=== PATIENT | female | born 1960 | race Caucasian/White ===

== ENCOUNTER 2018-11-16 17:25 | Observation (INO) | payer MEDICARE, BC, MEDICAID ==
--- NOTE | 2018-11-16 17:40 | EDM.PDOC ---
ED HPI GENERAL MEDICAL PROBLEM - General Chief Complaint: Cardiovascular Problem Stated Complaint: CHEST PAIN, SHORTNESS OF BREATH Time Seen by Provider: 11/16/18 17:33 Source of Information: Reports: Residential Records, Old Records, Provider History Limitations: Reports: Other (Chronic mental health) - History of Present Illness INITIAL COMMENTS - FREE TEXT/NARRATIVE: Arrived shortly before closing of the [facility] with EKG and 4 baby aspirin being administered. No evidence of infarct or ischemia on the EKG which was sent with her. Health status requires further workup not available in clinic. History of pneumonia PE and being septic in August. Was anticoagulated with an INR 2.5 1 week ago. Noted in [facility] "CODE STATUS is DO NOT RESUSCITATE" dated 2 L nasal cannula oxygen was administered last weekend and has been continuous since then. Despite this has been a pressure shortness of breath chest pain and feeling. According to the attendant with her she never rebounded to the same status after her significant illness in August. Onset: Gradual Onset Date: 11/13/18 Duration: Day(s):, Getting Worse Location: Reports: Chest Quality: Reports: Pressure Severity: Moderate Improves with: Reports: Other (Oxygen) Worsens with: Reports: Breathing, Movement Associated Symptoms: Reports: No Other Symptoms Treatments ORGANIZATION DEVELOPMENT CONSULTANT: Reports: Oxygen - Related Data Allergies Allergy/AdvReac Type Severity Reaction Status Date / Time cefoperazone sodium Allergy Cannot Verified 03/21/14 13:53 [From Cefobid] Remember codeine Allergy Edema Verified 03/21/14 13:53 hydromorphone [Hydromorphone] Allergy Respiratory Verified 03/21/14 13:53 Distress meperidine Allergy Respiratory Verified 03/21/14 13:53 Distress morphine Allergy Respiratory Verified 03/21/14 13:53 Distress Penicillins Allergy Cannot Verified 03/21/14 13:53 Remember Home Meds: Home Meds Acetaminophen 650 mg PO Q4H PRN 03/21/14 [History] Albuterol Sulfate [Albuterol Sulfate HFA] 2 puff IH Q4H PRN 03/21/14 [History] Fenofibrate Nanocrystallized [Fenofibrate] 145 mg PO DAILY 03/21/14 [History] Folic Acid 1 mg PO DAILY 03/21/14 [History] Ipratropium/Albuterol Sulfate [Duoneb 0.5 mg-3 mg/3 ml Soln] 1 unit NEB BID [History] Levothyroxine Sodium [Synthroid] 200 mcg PO ACBRK 03/21/14 [History] Lisinopril 2.5 mg PO DAILY 03/21/14 [History] Methotrexate Sodium [Methotrexate] 17.5 mg PO WE 03/21/14 [History] Omeprazole [Prilosec] 20 mg PO DAILY 03/21/14 [History] Sennosides/Docusate Sodium [Senna Plus Tablet] 2 each PO BID 03/21/14 [History] cloZAPine 400 mg PO QPM 03/21/14 [History] clonazePAM [Clonazepam] 3 mg PO BID 03/21/14 [History] Acetaminophen [Acetaminophen ER] 1,300 mg PO DAILY 11/16/18 [History] Acetaminophen [Acetaminophen ER] 650 mg PO 1300,2200 11/16/18 [History] Adalimumab [Humira(Cf) Pen] 40 mcg SUBCUT Q14D 11/16/18 [History] Bisacodyl 10 mg RECTAL DAILY PRN 11/16/18 [History] Calcium Carb & Citrate/Vit D3 [Calcium + D3 ER Tablet] 1 tab PO DAILY 11/16/18 [ History] Diclofenac Sodium [Voltaren 1% Gel] 2 gm TOP DAILY 11/16/18 [History] Dulaglutide [Trulicity] 1.5 mg SUBCUT WE 11/16/18 [History] Fluocinonide [Lidex 0.05% Crm] 1 dose TOP DAILY PRN 11/16/18 [History] Lurasidone HCl [Latuda] 40 mg PO 1600 11/16/18 [History] Lurasidone HCl [Latuda] 120 mg PO 1600 11/16/18 [History] Magnesium Hydroxide [Milk of Magnesia] 30 ml PO DAILY PRN 11/16/18 [History] Metoprolol Tartrate 5 mg IV Q6HR PRN 11/16/18 [History] Multivitamin [Multi-Vitamin Daily] 1 tab PO DAILY 11/16/18 [History] Nystatin 1 dose TOP BID PRN 11/16/18 [History] Paliperidone [Invega] 3 mg PO BEDTIME 11/16/18 [History] Paliperidone [Invega] 9 mg PO BEDTIME 11/16/18 [History] Polyethylene Glycol 3350 [MiraLAX] 17 gm PO DAILY 11/16/18 [History] Tresiba Flextouch* 20 units SUBCUT BEDTIME 11/16/18 [History] Warfarin [Coumadin] 2.5 mg PO SUMOWETHFR 11/16/18 [History] Warfarin [Coumadin] 3.75 mg PO TUSA 11/16/18 [History] amLODIPine [Norvasc] 2.5 mg PO DAILY 11/16/18 [History] atorvaSTATin [Lipitor] 10 mg PO BEDTIME 11/16/18 [History] guaiFENesin/Dextromethorphan [Tussin DM Clear] 10 ml PO Q4H PRN 11/16/18 [ History] metFORMIN [Glucophage] 500 mg PO BIDMEALS 11/16/18 [History] Past Medical History HEENT History: Reports: None Cardiovascular History: Reports: High Cholesterol, Hypertension, SOB on Exertion Respiratory History: Reports: COPD, PE, Pneumonia, Recurrent, Sleep Apnea Gastrointestinal History: Reports: GERD Genitourinary History: Reports: Chronic Renal Insuffiency DAYCARE TEACHER History: Reports: None Musculoskeletal History: Reports: Osteoarthritis Neurological History: Reports: Speech Problems (Minimally communicative) Psychiatric History: Reports: Schizophrenia Endocrine/Metabolic History: Reports: Diabetes, Type II, Hypothyroidism, IDDM Hematologic History: Reports: Anticoagulation Therapy Immunologic History: Reports: None Oncologic (Cancer) History: Reports: None Dermatologic History: Reports: None - Infectious Disease History Infectious Disease History: Reports: None - Past Surgical History GI Surgical History: Reports: Bariatric Procedure, Cholecystectomy, Other (See Below) (Scoped for gastroesophageal reflux and maintenance) Female Surgical History: Reports: None Social & Family History - Living Situation & Occupation Living situation: Reports: Extended Care Facility Occupation: Disabled ED ROS GENERAL - Review of Systems Review Of Systems: See Below Constitutional: Reports: Chills, Diaphoresis. Denies: Fever HEENT: Reports: No Symptoms Respiratory: Reports: Cough (Progressively worsened in the last week but has been noted chronic in nature since August when she had pneumonia) Cardiovascular: Reports: Chest Pain Endocrine: Reports: No Symptoms GI/Abdominal: Reports: No Symptoms : Reports: No Symptoms Musculoskeletal: Reports: Other (Chronic aches and pains) Skin: Reports: No Symptoms Neurological: Reports: No Symptoms Psychiatric: Reports: Other (stability and chronic diagnosis schizophrenia) Hematologic/Lymphatic: Reports: Easy Bleeding, Easy Bruising Immunologic: Reports: No Symptoms ED EXAM, GENERAL - Physical Exam Exam: See Below Free Text/Narrative:: Minimally conversive and obtaining history provided by attending transport person from facility as well as records and phone conversation with Dr. Robert Belcher General Appearance: Alert, WD/WN, Mild Distress Ears: Normal External Exam, Normal Canal Nose: Normal Inspection, Normal Mucosa, No Blood Throat/Mouth: No: Normal Inspection (Occult examination following commands and opens mouth partially showing stained tongue and mildly dry), Normal Oropharynx (Erythematous) Head: Atraumatic, Normocephalic Neck: Supple, Non-Tender Respiratory/Chest: Respiratory Distress (Positionally changing), Decreased Breath Sounds (Secondary of body habitus as well as positioning and cooperation and exam), Rhonchi. No: No Respiratory Distress (Positionally changing), Pleural Rub Cardiovascular: No Murmur, Other (Trace edema ankles legs) GI/Abdominal: No Mass, Hernia (Stasis recti appearing when coughing). No: Tender (Female) Exam: Deferred Rectal (Female) Exam: Deferred Extremities: Normal Capillary Refill, Pedal Edema (+1+ to) Neurological: Alert Psychiatric: Normal Affect, Normal Mood Skin Exam: Warm, Dry, Intact, Normal Color, No Rash Lymphatic: No Adenopathy Course - Vital Signs Text/Narrative:: Has remained comfortable semi-supine in bed with oxygen per nasal cannula continuing at 2 L. Her complaint is improved slightly throughout the course of stay awaiting x-ray and laboratory analysis. Last Recorded V/S: Last Vital Signs Temp 36.3 C 11/16/18 18:23 Pulse 84 11/16/18 18:23 Resp 33 H 11/16/18 18:23 BP 141/62 H 11/16/18 18:23 Pulse Ox 88 L 11/16/18 18:23 - Orders/Labs/Meds Labs: Laboratory Tests 11/16/18 11/16/18 11/16/18 Range/Units 17:50 17:50 17:50 WBC 8.52 (5.00-10.00) 10^3/uL RBC 4.33 (3.80-5.50) 10^6/uL Hgb 12.7 (12.0-16.0) g/dL Hct 38.3 (37.0-47.0) % MCV 88.5 (82.0-92.0) fL MCH 29.3 (27.0-31.0) pg MCHC 33.2 (32.0-36.0) g/dL RDW 17.7 H (11.5-14.5) % Plt Count 395 (150-400) 10^3/uL MPV 10.0 (7.4-10.4) fL Immature Gran % (Auto) 1.1 (0.0-5.0) % Neut % (Auto) 58.9 (50.0-70.0) % Lymph % (Auto) 28.6 (20.0-40.0) % Tucker % (Auto) 8.9 H (2.0-8.0) % Eos % (Auto) 2.3 (1.0-3.0) % Baso % (Auto) 0.2 (0.0-1.0) % Immature Gran # (Auto) 0.09 (0.00-0.50) 10^3/uL Neut # (Auto) 5.01 (2.50-7.00) 10^3/uL Lymph # (Auto) 2.44 (1.00-4.00) 10^3/uL Tucker # (Auto) 0.76 (0.10-0.80) 10^3/uL Eos # (Auto) 0.20 (0.10-0.30) 10^3/uL Baso # (Auto) 0.02 (0.00-0.10) 10^3/uL PT (8.9-11.4) SEC INR (0.9-1.1) D-Dimer, Quantitative (<400) ng/mL Sodium 140 (136-145) mmol/L Potassium 4.6 (3.3-5.3) mmol/L Chloride 104 (98-115) mmol/L Carbon Dioxide 28.1 (21.0-32.0) mmol/L Anion Gap 12.5 (5-15) mmol/L BUN 16 (6-25) mg/dL Creatinine 0.91 (0.51-1.17) mg/dL Est Cr Clr Drug Dosing 57.48 mL/min Estimated GFR (MDRD) > 60 mL/min Glucose 99 (75 - 99) mg/dL Lactic Acid 1.5 (0.4-2.0) mmol/L Calcium 8.5 L (8.7-10.3) mg/dL Total Bilirubin 0.5 (0.2-1.0) mg/dL AST 36 (15-37) U/L ALT 13 (12-78) U/L Alkaline Phosphatase 74 (46-116) IU/L Creatine Kinase 162 (26-276) U/L CK-MB (CK-2) 0.50 (0.00-4.30) ng/mL Troponin I 0.08 H* (0.00-0.070) ng/mL C-Reactive Protein 6.6 H (0.0-0.9) mg/dL Total Protein 6.0 L (6.4-8.2) g/dL Albumin 2.25 L (3.00-4.80) g/dL 11/16/18 11/16/18 Range/Units 17:50 17:50 WBC (5.00-10.00) 10^3/uL RBC (3.80-5.50) 10^6/uL Hgb (12.0-16.0) g/dL Hct (37.0-47.0) % MCV (82.0-92.0) fL MCH (27.0-31.0) pg MCHC (32.0-36.0) g/dL RDW (11.5-14.5) % Plt Count (150-400) 10^3/uL MPV (7.4-10.4) fL Immature Gran % (Auto) (0.0-5.0) % Neut % (Auto) (50.0-70.0) % Lymph % (Auto) (20.0-40.0) % Tucker % (Auto) (2.0-8.0) % Eos % (Auto) (1.0-3.0) % Baso % (Auto) (0.0-1.0) % Immature Gran # (Auto) (0.00-0.50) 10^3/uL Neut # (Auto) (2.50-7.00) 10^3/uL Lymph # (Auto) (1.00-4.00) 10^3/uL Tucker # (Auto) (0.10-0.80) 10^3/uL Eos # (Auto) (0.10-0.30) 10^3/uL Baso # (Auto) (0.00-0.10) 10^3/uL PT 42.2 H (8.9-11.4) SEC INR 4.3 H* (0.9-1.1) D-Dimer, Quantitative < 100 (<400) ng/mL Sodium (136-145) mmol/L Potassium (3.3-5.3) mmol/L Chloride (98-115) mmol/L Carbon Dioxide (21.0-32.0) mmol/L Anion Gap (5-15) mmol/L BUN (6-25) mg/dL Creatinine (0.51-1.17) mg/dL Est Cr Clr Drug Dosing mL/min Estimated GFR (MDRD) mL/min Glucose (75 - 99) mg/dL Lactic Acid (0.4-2.0) mmol/L Calcium (8.7-10.3) mg/dL Total Bilirubin (0.2-1.0) mg/dL AST (15-37) U/L ALT (12-78) U/L Alkaline Phosphatase (46-116) IU/L Creatine Kinase (26-276) U/L CK-MB (CK-2) (0.00-4.30) ng/mL Troponin I (0.00-0.070) ng/mL C-Reactive Protein (0.0-0.9) mg/dL Total Protein (6.4-8.2) g/dL Albumin (3.00-4.80) g/dL - Radiology Interpretation Free Text/Narrative:: Single view chest x-ray shows poor inspiration with chronic scarring at the right base. Atelectasis bilateral left side worse than right with likely pleural effusion on the left as well. Upper limits of normal cardiac silhouette with faint congestive pattern. - Re-Assessments/Exams Free Text/Narrative Re-Assessment/Exam: 11/16/18 19:25 Mild improvement in status aware of refer for observation, rule out NE Departure - Departure Time of Disposition: 20:17 Disposition: Refer to Observation Condition: Fair Clinical Impression: COPD, Mild chronic obstructive pulmonary disease, Elevated troponin I level, Pleural effusion - Discharge Information *PRESCRIPTION DRUG MONITORING PROGRAM REVIEWED*: Not Applicable *COPY OF PRESCRIPTION DRUG MONITORING REPORT IN PATIENT DIANNE: Not Applicable Referrals: Alley Morales MD [Primary Care Provider] - Forms: ED Department Discharge ED Communication - Discussed Case With (1) Discussed Case With (1): Admitting Provider Person/s Notified (1): Dr. Wiggins (Observation status with repeat troponin to be performed 2200 hours. Colton Martel providing rounds) Date: 11/16/18 Time Called: 18:50 - Discussed Case With (2) Discussed Case With (2): Inpatient Electrical Engineering Technologist Person/s Notified (3): Colton Martel Date: 11/16/18 Time Called: 18:35 - Problem List & Annotations (1) Pleural effusion SNOMED Code(s): 54125570 Code(s): J90 - PLEURAL EFFUSION, NOT ELSEWHERE CLASSIFIED Status: Acute Priority: Medium Current Visit: Yes (2) Mild basilar atelectasis of both lungs SNOMED Code(s): 47404698 Code(s): J98.11 - ATELECTASIS Status: Acute Priority: High Current Visit: Yes (3) Elevated INR (international normalized ratio) due to prior anticoagulant medication ingestion SNOMED Code(s): 023491772, 051747063 Code(s): R79.1 - ABNORMAL COAGULATION PROFILE Status: Acute Priority: High Current Visit: Yes Onset Date: ~11/16/18 Annotation/Comment:: Will hold Warfarin tonight (4) Elevated troponin I level SNOMED Code(s): 193944384 Code(s): R74.8 - ABNORMAL LEVELS OF OTHER SERUM ENZYMES Status: Acute Priority: High Current Visit: Yes Onset Date: ~11/16/18 Annotation/Comment :: Will retest troponin I 2200 hrs. (5) Elevated C-reactive protein (CRP) SNOMED Code(s): 487218854792991 Code(s): R79.82 - ELEVATED C-REACTIVE PROTEIN (CRP) Status: Acute Priority: Medium Current Visit: Yes Annotation/Comment:: Many contributing factors in health history and physical function (6) COPD, Mild chronic obstructive pulmonary disease SNOMED Code(s): 136148812 Code(s): J44.9 - CHRONIC OBSTRUCTIVE PULMONARY DISEASE, UNSPECIFIED Status : Chronic Priority: Medium Current Visit: Yes Annotation/Comment:: We'll continue to monitor. (7) Sleep apnea SNOMED Code(s): 65117881 Code(s): G47.30 - SLEEP APNEA, UNSPECIFIED Status: Chronic Priority: High Current Visit: Yes Annotation/Comment:: Has not been using CPAP for at least the past 3 months if not longer which may be contributing to this ongoing atelectasis and breathing difficulty with troponin elevation Qualifiers: Sleep apnea type: obstructive Qualified Code(s): G47.33 - Obstructive sleep apnea (adult) (pediatric) - Problem List Review Problem List Initiated/Reviewed/Updated: Yes - Assessment/Plan Plan: Will be referred to observation status rule out NE with troponin I to be repeated at 2200 hrs. and results called to [facility]
--- NOTE | 2018-11-16 18:36 | CR ---
[id number] RAD/RAD Chest PA or AP 1V EXAM: FRONTAL CHEST INDICATION: Shortness of breath. COMPARISON: May 03, 2014. DISCUSSION: Small left pleural effusion with associated left base atelectasis. A chronic medial right base opacity may represent scarring. No definite infiltrates are identified, but pathology could be obscured in the lung bases. The heart is at upper limits of normal for size with borderline central vascular congestion. IMPRESSION: 1. Small left pleural effusion. 2. Borderline central vascular congestion. Vernon Case MD 11/16/18 1836 Thank you for allowing us to participate in the care of your patient.
[2018-11-16 18:38] LABS: ANION GAP 12.5 mmol/L (5-15); CHLORIDE,CL 104 mmol/L (98-115); SODIUM,NA 140 mmol/L (136-145)
[2018-11-16] MEDS ORDERED: guaiFENesin/Dextromethorphan 100-10 MG/5 ML Soln 5 ML Cup PO PRN (21:19)
[2018-11-16] MEDS ORDERED: FLUOCINONIDE TOP PRN (21:19)
[2018-11-16] MEDS ORDERED: Bisacodyl 10 MG Supp RECTAL PRN (21:19)
[2018-11-16] MEDS ORDERED: Metoprolol Tartrate 5 MG/5 ML SDV IV PRN (21:19)
[2018-11-16] MEDS ORDERED: Magnesium Hydroxide 400 MG/5 ML Susp 30 ML Cup PO PRN (21:19)
[2018-11-16] MEDS ORDERED: Nystatin Topical Powder 15 GM Bottle TOP PRN (21:19)
[2018-11-16] MEDS ORDERED: ADALIMUMAB SUBCUT SCH (21:30)
[2018-11-16] MEDS: Acetaminophen 650 MG Tab.ER PO SCH (22:25)
[2018-11-17] MEDS: Levothyroxine 100 MCG Tab PO SCH (06:32)
[2018-11-17] MEDS: Polyethylene Glycol 3350 Powder 17 GM Packet PO SCH (08:24)
[2018-11-17] MEDS: Diclofenac Sodium 1% Gel 100 GM Tube TOP SCH (08:24)
[2018-11-17] MEDS: ClonazePAM 0.5 MG Tab PO SCH ×3 (08:24→23:10)
[2018-11-17] MEDS: Calcium Citrate/Vitamin D3 315 MG-250 Unit Tab PO SCH (08:25)
[2018-11-17] MEDS: Omeprazole 20 MG Cap.CR PO SCH (08:25)
[2018-11-17] MEDS: metFORMIN 500 MG Tab PO SCH ×2 (08:25→18:25)
[2018-11-17] MEDS: Folic Acid 1 MG Tab PO SCH (08:25)
[2018-11-17] MEDS: amLODIPine 2.5 MG Tab PO SCH (08:25)
[2018-11-17] MEDS: Lisinopril 10 MG Tab PO SCH (08:25)
[2018-11-17] MEDS: Albuterol/Ipratropium 3.0-0.5 MG/3 ML Neb Soln NEB SCH ×2 (08:26→22:05)
[2018-11-17 09:36] LABS: O2 DELIVERY DEVICE NASAL CANNULA; PCO2 ARTERIAL 44 mmHG (35-45)
[2018-11-17 09:37] LABS: BASE EXCESS ARTERIAL 1 mmol/L (-2-3); BICARBONATE,ARTERIAL 26.2 mmol/L (22-26); O2 FLOW RATE 4 L/min; O2 SATURATION ARTERIAL 86 % (95-98)
[2018-11-17 09:38] LABS: PO2 ARTERIAL 52 mmHG (80-105)
[2018-11-17] MEDS: Biotin/Folic Acid/Vitamin C/Vitamin B Complex Tab PO SCH (10:00)
[2018-11-17] MEDS: FENOFIBRATE NANOCRYSTALLIZED 145 MG PO SCH (10:05)
--- NOTE | 2018-11-17 10:39 | PCM.HP ---
H&P History of Present Illness - General Date of Service: 11/17/18 Admit Problem/Dx: Admission Diagnosis/Problem Admission Diagnosis/Problem Elevated troponin I level Source of Information: Old Records, RN History Limitations: Reports: Altered Mental Status Left Chest Pain Score (Numeric/FACES): 7 - Related Data Allergies/Adverse Reactions: Allergies Allergy/AdvReac Type Severity Reaction Status Date / Time cefoperazone sodium Allergy Cannot Verified 03/21/14 13:53 [From Cefobid] Remember codeine Allergy Edema Verified 03/21/14 13:53 hydromorphone [Hydromorphone] Allergy Respiratory Verified 03/21/14 13:53 Distress meperidine Allergy Respiratory Verified 03/21/14 13:53 Distress morphine Allergy Respiratory Verified 03/21/14 13:53 Distress Penicillins Allergy Cannot Verified 03/21/14 13:53 Remember Home Medications: Home Meds Acetaminophen 650 mg PO Q4H PRN 03/21/14 [History] Albuterol Sulfate [Albuterol Sulfate HFA] 2 puff IH Q4H PRN 03/21/14 [History] Fenofibrate Nanocrystallized [Fenofibrate] 145 mg PO DAILY 03/21/14 [History] Folic Acid 1 mg PO DAILY 03/21/14 [History] Ipratropium/Albuterol Sulfate [Duoneb 0.5 mg-3 mg/3 ml Soln] 1 unit NEB BID [History] Levothyroxine Sodium [Synthroid] 200 mcg PO ACBRK 03/21/14 [History] Lisinopril 2.5 mg PO DAILY 03/21/14 [History] Methotrexate Sodium [Methotrexate] 17.5 mg PO WE 03/21/14 [History] Omeprazole [Prilosec] 20 mg PO DAILY 03/21/14 [History] Sennosides/Docusate Sodium [Senna Plus Tablet] 2 each PO BID 03/21/14 [History] cloZAPine 400 mg PO QPM 03/21/14 [History] clonazePAM [Clonazepam] 3 mg PO BID 03/21/14 [History] Acetaminophen [Acetaminophen ER] 1,300 mg PO DAILY 11/16/18 [History] Acetaminophen [Acetaminophen ER] 650 mg PO 1300,2200 11/16/18 [History] Adalimumab [Humira(Cf) Pen] 40 mcg SUBCUT Q14D 11/16/18 [History] Bisacodyl 10 mg RECTAL DAILY PRN 11/16/18 [History] Calcium Carb & Citrate/Vit D3 [Calcium + D3 ER Tablet] 1 tab PO DAILY 11/16/18 [ History] Diclofenac Sodium [Voltaren 1% Gel] 2 gm TOP DAILY 11/16/18 [History] Dulaglutide [Trulicity] 1.5 mg SUBCUT WE 11/16/18 [History] Fluocinonide [Lidex 0.05% Crm] 1 dose TOP DAILY PRN 11/16/18 [History] Lurasidone HCl [Latuda] 40 mg PO 1600 11/16/18 [History] Lurasidone HCl [Latuda] 120 mg PO 1600 11/16/18 [History] Magnesium Hydroxide [Milk of Magnesia] 30 ml PO DAILY PRN 11/16/18 [History] Metoprolol Tartrate 5 mg IV Q6HR PRN 11/16/18 [History] Multivitamin [Multi-Vitamin Daily] 1 tab PO DAILY 11/16/18 [History] Nystatin 1 dose TOP BID PRN 11/16/18 [History] Paliperidone [Invega] 3 mg PO BEDTIME 11/16/18 [History] Paliperidone [Invega] 9 mg PO BEDTIME 11/16/18 [History] Polyethylene Glycol 3350 [MiraLAX] 17 gm PO DAILY 11/16/18 [History] Tresiba Flextouch* 20 units SUBCUT BEDTIME 11/16/18 [History] Warfarin [Coumadin] 2.5 mg PO SUMOWETHFR 11/16/18 [History] Warfarin [Coumadin] 3.75 mg PO TUSA 11/16/18 [History] amLODIPine [Norvasc] 2.5 mg PO DAILY 11/16/18 [History] atorvaSTATin [Lipitor] 10 mg PO BEDTIME 11/16/18 [History] guaiFENesin/Dextromethorphan [Tussin DM Clear] 10 ml PO Q4H PRN 11/16/18 [ History] metFORMIN [Glucophage] 500 mg PO BIDMEALS 11/16/18 [History] Past Medical History HEENT History: Reports: None, Impaired Vision, Other (See Below) Other HEENT History: glasses Cardiovascular History: Reports: Blood Clots/VTE/DVT, High Cholesterol, Hypertension, SOB on Exertion Respiratory History: Reports: COPD, PE, Pneumonia, Recurrent, Sleep Apnea Gastrointestinal History: Reports: GERD Genitourinary History: Reports: Chronic Renal Insuffiency [employer] 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 Musculoskeletal History: Reports: Osteoarthritis Neurological History: Reports: Speech Problems Psychiatric History: Reports: Schizophrenia Endocrine/Metabolic History: Reports: Diabetes, Type II, Hypothyroidism, IDDM Hematologic History: Reports: Anticoagulation Therapy Immunologic History: Reports: None Oncologic (Cancer) History: Reports: None Dermatologic History: Reports: None - Infectious Disease History Infectious Disease History: Reports: None - Past Surgical History Cardiovascular Surgical History: Reports: None Respiratory Surgical History: Reports: None GI Surgical History: Reports: Bariatric Procedure, Cholecystectomy Female Surgical History: Reports: None Other Musculoskeletal Surgeries/Procedures:: scar on the right knee Social & Family History - Family History Family Medical History: Unobtainable - Tobacco Use Smoking Status *Q: Former Smoker Years of Tobacco use: 1 Used Tobacco, but Quit: Yes Month/Year Tobacco Last Used: april Hand Smoke Exposure: No - Caffeine Use Caffeine Use: Reports: Soda - Recreational Drug Use Recreational Drug Use: No - Living Situation & Occupation Living situation: Reports: Extended Care Facility Occupation: Disabled H&P Review of Systems - Review of Systems: Review Of Systems: Unable To Obtain (Due to the patient's psychiatric history/ impression very minimal ROS obtainable) General: Denies: Fever HEENT: Reports: No Symptoms Pulmonary: Reports: Shortness of Breath, Cough Cardiovascular: Reports: Chest Pain Psychiatric: Reports: Confusion Neurological: Reports: Pre-Existing Deficit Exam - Exam Exam: See Below - Vital Signs Vital Signs: Last Vital Signs Temp 98.6 F 11/17/18 06:17 Pulse 91 11/17/18 06:17 Resp 40 H 11/17/18 06:17 BP 129/70 11/17/18 08:25 Pulse Ox 88 L 11/17/18 06:17 Weight: 227 lb 9 oz - Exam Quality Assessment: Supplemental Oxygen General: Alert, Cooperative. No: Oriented, Mild Distress HEENT: Hearing Intact, Mucosa Moist & [place] Neck: No: Lymphadenopathy, JVD Lungs: Crackles Cardiovascular: Regular Rate, Regular Rhythm GI/Abdominal Exam: Normal Bowel Sounds, Soft Back Exam: No: CVA Tenderness (L), CVA Tenderness (R) Extremities: No Pedal Edema Peripheral Pulses: 3+: Radial (L), Radial (R) Skin: Warm, Dry, Intact Neurological: Normal Tone, Sensation Intact. No: Focal Deficit Neuro Extensive - Mental Status: Alert, Slow Response to Commands. No: Normal Mood/Affect (Flat affect, laconic) Psychiatric: Alert. No: Agitated (Nurses reported quite agitated and moaning most of the night) - Patient Data Lab Results Last 24 hrs: Laboratory Results - last 24 hr 11/16/18 11/16/18 11/16/18 Range/Units 10:00 17:50 17:50 WBC 8.52 (5.00-10.00) 10^3/uL RBC 4.33 (3.80-5.50) 10^6/uL Hgb 12.7 (12.0-16.0) g/dL Hct 38.3 (37.0-47.0) % MCV 88.5 (82.0-92.0) fL MCH 29.3 (27.0-31.0) pg MCHC 33.2 (32.0-36.0) g/dL RDW 17.7 H (11.5-14.5) % Plt Count 395 (150-400) 10^3/uL MPV 10.0 (7.4-10.4) fL Immature Gran % (Auto) 1.1 (0.0-5.0) % Neut % (Auto) 58.9 (50.0-70.0) % Lymph % (Auto) 28.6 (20.0-40.0) % Moody % (Auto) 8.9 H (2.0-8.0) % Eos % (Auto) 2.3 (1.0-3.0) % Baso % (Auto) 0.2 (0.0-1.0) % Immature Gran # (Auto) 0.09 (0.00-0.50) 10^3/uL Neut # (Auto) 5.01 (2.50-7.00) 10^3/uL Lymph # (Auto) 2.44 (1.00-4.00) 10^3/uL Moody # (Auto) 0.76 (0.10-0.80) 10^3/uL Eos # (Auto) 0.20 (0.10-0.30) 10^3/uL Baso # (Auto) 0.02 (0.00-0.10) 10^3/uL PT (8.9-11.4) SEC INR (0.9-1.1) D-Dimer, Quantitative (<400) ng/mL ABG pH (7.35-7.45) ABG pCO2 (35-45) mmHG ABG pO2 (80-105) mmHG ABG HCO3 (22-26) mmol/L ABG Total CO2 (23-27) mmol/L ABG O2 Saturation (95-98) % ABG Base Excess (-2-3) mmol/L O2 Delivery Device Oxygen Flow Rate L/min Sodium 140 (136-145) mmol/L Potassium 4.6 (3.3-5.3) mmol/L Chloride 104 (98-115) mmol/L Carbon Dioxide 28.1 (21.0-32.0) mmol/L Anion Gap 12.5 (5-15) mmol/L BUN 16 (6-25) mg/dL Creatinine 0.91 (0.51-1.17) mg/dL Est Cr Clr Drug Dosing 57.48 mL/min Estimated GFR (MDRD) > 60 mL/min Glucose 99 (75 - 99) mg/dL POC Glucose (74-106) mg/dl Lactic Acid (0.4-2.0) mmol/L Calcium 8.5 L (8.7-10.3) mg/dL Total Bilirubin 0.5 (0.2-1.0) mg/dL AST 36 (15-37) U/L ALT 13 (12-78) U/L Alkaline Phosphatase 74 (46-116) IU/L Creatine Kinase 162 (26-276) U/L CK-MB (CK-2) 0.50 (0.00-4.30) ng/mL Troponin I 0.05 0.08 H* (0.00-0.070) ng/mL C-Reactive Protein 6.6 H (0.0-0.9) mg/dL B-Natriuretic Peptide (0-100) pg/mL Total Protein 6.0 L (6.4-8.2) g/dL Albumin 2.25 L (3.00-4.80) g/dL 11/16/18 11/16/18 11/16/18 Range/Units 17:50 17:50 17:50 WBC (5.00-10.00) 10^3/uL RBC (3.80-5.50) 10^6/uL Hgb (12.0-16.0) g/dL Hct (37.0-47.0) % MCV (82.0-92.0) fL MCH (27.0-31.0) pg MCHC (32.0-36.0) g/dL RDW (11.5-14.5) % Plt Count (150-400) 10^3/uL MPV (7.4-10.4) fL Immature Gran % (Auto) (0.0-5.0) % Neut % (Auto) (50.0-70.0) % Lymph % (Auto) (20.0-40.0) % Moody % (Auto) (2.0-8.0) % Eos % (Auto) (1.0-3.0) % Baso % (Auto) (0.0-1.0) % Immature Gran # (Auto) (0.00-0.50) 10^3/uL Neut # (Auto) (2.50-7.00) 10^3/uL Lymph # (Auto) (1.00-4.00) 10^3/uL Moody # (Auto) (0.10-0.80) 10^3/uL Eos # (Auto) (0.10-0.30) 10^3/uL Baso # (Auto) (0.00-0.10) 10^3/uL PT 42.2 H (8.9-11.4) SEC INR 4.3 H* (0.9-1.1) D-Dimer, Quantitative < 100 (<400) ng/mL ABG pH (7.35-7.45) ABG pCO2 (35-45) mmHG ABG pO2 (80-105) mmHG ABG HCO3 (22-26) mmol/L ABG Total CO2 (23-27) mmol/L ABG O2 Saturation (95-98) % ABG Base Excess (-2-3) mmol/L O2 Delivery Device Oxygen Flow Rate L/min Sodium (136-145) mmol/L Potassium (3.3-5.3) mmol/L Chloride (98-115) mmol/L Carbon Dioxide (21.0-32.0) mmol/L Anion Gap (5-15) mmol/L BUN (6-25) mg/dL Creatinine (0.51-1.17) mg/dL Est Cr Clr Drug Dosing mL/min Estimated GFR (MDRD) mL/min Glucose (75 - 99) mg/dL POC Glucose (74-106) mg/dl Lactic Acid 1.5 (0.4-2.0) mmol/L Calcium (8.7-10.3) mg/dL Total Bilirubin (0.2-1.0) mg/dL AST (15-37) U/L ALT (12-78) U/L Alkaline Phosphatase (46-116) IU/L Creatine Kinase (26-276) U/L CK-MB (CK-2) (0.00-4.30) ng/mL Troponin I (0.00-0.070) ng/mL C-Reactive Protein (0.0-0.9) mg/dL B-Natriuretic Peptide (0-100) pg/mL Total Protein (6.4-8.2) g/dL Albumin (3.00-4.80) g/dL 11/16/18 11/17/18 11/17/18 Range/Units 22:22 07:10 07:10 WBC (5.00-10.00) 10^3/uL RBC (3.80-5.50) 10^6/uL Hgb (12.0-16.0) g/dL Hct (37.0-47.0) % MCV (82.0-92.0) fL MCH (27.0-31.0) pg MCHC (32.0-36.0) g/dL RDW (11.5-14.5) % Plt Count (150-400) 10^3/uL MPV (7.4-10.4) fL Immature Gran % (Auto) (0.0-5.0) % Neut % (Auto) (50.0-70.0) % Lymph % (Auto) (20.0-40.0) % Moody % (Auto) (2.0-8.0) % Eos % (Auto) (1.0-3.0) % Baso % (Auto) (0.0-1.0) % Immature Gran # (Auto) (0.00-0.50) 10^3/uL Neut # (Auto) (2.50-7.00) 10^3/uL Lymph # (Auto) (1.00-4.00) 10^3/uL Moody # (Auto) (0.10-0.80) 10^3/uL Eos # (Auto) (0.10-0.30) 10^3/uL Baso # (Auto) (0.00-0.10) 10^3/uL PT 37.0 H (8.9-11.4) SEC INR 3.8 H (0.9-1.1) D-Dimer, Quantitative (<400) ng/mL ABG pH (7.35-7.45) ABG pCO2 (35-45) mmHG ABG pO2 (80-105) mmHG ABG HCO3 (22-26) mmol/L ABG Total CO2 (23-27) mmol/L ABG O2 Saturation (95-98) % ABG Base Excess (-2-3) mmol/L O2 Delivery Device Oxygen Flow Rate L/min Sodium (136-145) mmol/L Potassium (3.3-5.3) mmol/L Chloride (98-115) mmol/L Carbon Dioxide (21.0-32.0) mmol/L Anion Gap (5-15) mmol/L BUN (6-25) mg/dL Creatinine (0.51-1.17) mg/dL Est Cr Clr Drug Dosing mL/min Estimated GFR (MDRD) mL/min Glucose (75 - 99) mg/dL POC Glucose 96 (74-106) mg/dl Lactic Acid (0.4-2.0) mmol/L Calcium (8.7-10.3) mg/dL Total Bilirubin (0.2-1.0) mg/dL AST (15-37) U/L ALT (12-78) U/L Alkaline Phosphatase (46-116) IU/L Creatine Kinase (26-276) U/L CK-MB (CK-2) (0.00-4.30) ng/mL Troponin I 0.07 (0.00-0.070) ng/mL C-Reactive Protein (0.0-0.9) mg/dL B-Natriuretic Peptide (0-100) pg/mL Total Protein (6.4-8.2) g/dL Albumin (3.00-4.80) g/dL 11/17/18 11/17/18 Range/Units 07:10 09:25 WBC (5.00-10.00) 10^3/uL RBC (3.80-5.50) 10^6/uL Hgb (12.0-16.0) g/dL Hct (37.0-47.0) % MCV (82.0-92.0) fL MCH (27.0-31.0) pg MCHC (32.0-36.0) g/dL RDW (11.5-14.5) % Plt Count (150-400) 10^3/uL MPV (7.4-10.4) fL Immature Gran % (Auto) (0.0-5.0) % Neut % (Auto) (50.0-70.0) % Lymph % (Auto) (20.0-40.0) % Moody % (Auto) (2.0-8.0) % Eos % (Auto) (1.0-3.0) % Baso % (Auto) (0.0-1.0) % Immature Gran # (Auto) (0.00-0.50) 10^3/uL Neut # (Auto) (2.50-7.00) 10^3/uL Lymph # (Auto) (1.00-4.00) 10^3/uL Moody # (Auto) (0.10-0.80) 10^3/uL Eos # (Auto) (0.10-0.30) 10^3/uL Baso # (Auto) (0.00-0.10) 10^3/uL PT (8.9-11.4) SEC INR (0.9-1.1) D-Dimer, Quantitative (<400) ng/mL ABG pH 7.38 (7.35-7.45) ABG pCO2 44 (35-45) mmHG ABG pO2 52 L (80-105) mmHG ABG HCO3 26.2 H (22-26) mmol/L ABG Total CO2 28 H (23-27) mmol/L ABG O2 Saturation 86 L (95-98) % ABG Base Excess 1 (-2-3) mmol/L O2 Delivery Device Nasal cannula Oxygen Flow Rate 4 L/min Sodium (136-145) mmol/L Potassium (3.3-5.3) mmol/L Chloride (98-115) mmol/L Carbon Dioxide (21.0-32.0) mmol/L Anion Gap (5-15) mmol/L BUN (6-25) mg/dL Creatinine (0.51-1.17) mg/dL Est Cr Clr Drug Dosing mL/min Estimated GFR (MDRD) mL/min Glucose (75 - 99) mg/dL POC Glucose (74-106) mg/dl Lactic Acid (0.4-2.0) mmol/L Calcium (8.7-10.3) mg/dL Total Bilirubin (0.2-1.0) mg/dL AST (15-37) U/L ALT (12-78) U/L Alkaline Phosphatase (46-116) IU/L Creatine Kinase (26-276) U/L CK-MB (CK-2) (0.00-4.30) ng/mL Troponin I (0.00-0.070) ng/mL C-Reactive Protein (0.0-0.9) mg/dL B-Natriuretic Peptide 30 (0-100) pg/mL Total Protein (6.4-8.2) g/dL Albumin (3.00-4.80) g/dL Result Diagrams: 11/16/18 17:50 11/16/18 17:50 Problem List Initiated/Reviewed/Updated: Yes Orders Last 24hrs: Active Orders 24 hr Category Date Time Status Patient Status [ADT] Routine ADT 11/16/18 21:14 Ordered Blood Glucose Check, Bedside [RC] 0700 Care 11/17/18 00:36 Active Incentive Breathing [RT Incentive Spirometry] [] Care 11/17/18 08:59 Active Q1HWA Oxygen Therapy Adult [Oxygen Therapy] [RC] ASDIRECTED Care 11/16/18 21:23 Active Telemetry Monitoring [Cardiac Monitoring] [RC] 0300, Care 11/16/18 21:18 Active 0700,1100,1500,1900,2300 Up With Assistance [RC] ASDIRECTED Care 11/16/18 21:14 Active Vital Signs [RC] 0300,0700,1100,1500,1900,2300 Care 11/16/18 21:14 Active Vital Signs [RC] Q4H Care 11/16/18 21:12 Inactive Thickened Liquids [DIET] Diet 11/17/18 Lunch Active ABG [BLOOD GAS ARTERIAL] [BG] Routine Lab 11/17/18 09:25 Received PROCALCITONIN [REF] Routine Lab 11/17/18 07:10 Received Acetaminophen [Tylenol Arthritis Pain] Med 11/16/18 22:00 Active 650 mg PO 1300,2200 Acetaminophen [Tylenol] Med 11/16/18 21:19 Unverified DOSE UNIT RTE FREQ PRN Adalimumab [Humira(Cf) Pen] Med 11/16/18 21:30 Pending 40 mcg SUBCUT Q14D Albuterol Sulfate Med 11/16/18 21:19 Unverified DOSE UNIT RTE FREQ PRN Albuterol/Ipratropium [DuoNeb 3.0-0.5 MG/3 ML] Med 11/17/18 09:00 Active 3 ml NEB BID Biotin/FA/Vit C/Vit B Complex [Nephrocaps] Med 11/17/18 09:00 Active 1 tab PO DAILY Bisacodyl [Dulcolax] Med 11/16/18 21:19 Active 10 mg RECTAL DAILY PRN Calcium Citrate/Vitamin D3 [Calcium Citrate + D] Med 11/17/18 09:00 Active 1 tab PO DAILY ClonazePAM [KlonoPIN] Med 11/17/18 09:00 Active 3 mg PO BID Dextromethorphan/guaiFENesin [Robitussin DM] Med 11/16/18 21:19 Active 10 ml PO Q4H PRN Diclofenac Sodium [Voltaren 1% Gel] Med 11/17/18 09:00 Active 2 gm TOP DAILY Docusate Sodium/Sennosides [Senna Plus] Med 11/17/18 09:00 Active 1 tab PO BID Dulaglutide [Trulicity] Med 11/17/18 21:19 Pending 1.5 mg SUBCUT WE Fenofibrate Nanocrystallized [Tricor] Med 11/17/18 09:00 Active 145 mg PO DAILY Fluocinonide [Lidex 0.05% Crm] Med 11/16/18 21:19 Pending 1 dose TOP DAILY PRN Folic Acid Med 11/17/18 09:00 Active 1 mg PO DAILY Levothyroxine [Synthroid] Med 11/17/18 07:00 Active 200 mcg PO ACBRK Lisinopril [Prinivil] Med 11/17/18 09:00 Active 2.5 mg PO DAILY Lurasidone HCl [Latuda] Med 11/17/18 16:00 Pending 120 mg PO 1600 Lurasidone HCl [Latuda] Med 11/17/18 16:00 Pending 40 mg PO 1600 Magnesium Hydroxide [Milk of Magnesia] Med 11/16/18 21:19 Active 30 ml PO DAILY PRN Methotrexate Med 11/17/18 21:19 Active 17.5 mg PO WE Metoprolol Tartrate [Lopressor] Med 11/16/18 21:19 Active 5 mg IV Q6HR PRN Nystatin [Nystop] Med 11/16/18 21:19 Active 0 gm TOP BID PRN Omeprazole Med 11/17/18 09:00 Active 20 mg PO DAILY Paliperidone [Invega] Med 11/17/18 21:00 Pending 3 mg PO BEDTIME Paliperidone [Invega] Med 11/17/18 21:00 Pending 9 mg PO BEDTIME Polyethylene Glycol 3350 [MiraLAX] Med 11/17/18 09:00 Active 17 gm PO DAILY Tresiba Flextouch* Med 11/17/18 21:00 Pending 20 units SUBCUT BEDTIME amLODIPine [Norvasc] Med 11/17/18 09:00 Active 2.5 mg PO DAILY atorvaSTATin [Lipitor] Med 11/17/18 21:00 Active 10 mg PO BEDTIME cloZAPine Med 11/17/18 21:00 Pending 400 mg PO QPM metFORMIN [Glucophage] Med 11/17/18 08:00 Active 500 mg PO BIDMEALS Code Status [Resuscitation Status] Routine Resus Stat 11/16/18 21:22 Ordered Medication Orders Acetaminophen (Tylenol Arthritis Pain) 650 mg PO 1300,2200 [facility] Last Admin: 11/16/18 22:25 Dose: Not Given Albuterol/Ipratropium (Duoneb 3.0-0.5 Mg/3 Ml) 3 ml NEB BID [facility] Last Admin: 11/17/18 08:26 Dose: 3 ml Amlodipine Besylate (Norvasc) 2.5 mg PO DAILY [facility] Last Admin: 11/17/18 08:25 Dose: 2.5 mg Atorvastatin Calcium (Lipitor) 10 mg PO BEDTIME [facility] Bisacodyl (Dulcolax) 10 mg RECTAL DAILY PRN PRN Reason: Constipation Calcium Citrate (Calcium Citrate + D) 1 tab PO DAILY [facility] Last Admin: 11/17/18 08:25 Dose: 1 tab Clonazepam (Klonopin) 3 mg PO BID [facility] Last Admin: 11/17/18 08:24 Dose: 3 mg Diclofenac Sodium (Voltaren 1% Gel) 2 gm TOP DAILY [facility] Last Admin: 11/17/18 08:24 Dose: 1 applic Fenofibrate (Tricor) 145 mg PO DAILY [facility] Folic Acid (Folic Acid) 1 mg PO DAILY [facility] Last Admin: 11/17/18 08:25 Dose: 1 mg Guaifenesin/Phenylephrine HCl (Robitussin Dm) 10 ml PO Q4H PRN PRN Reason: Cough Levothyroxine Sodium (Synthroid) 200 mcg PO ACBRK [facility] Last Admin: 11/17/18 06:32 Dose: 200 mcg Lisinopril (Prinivil) 2.5 mg PO DAILY [facility] Last Admin: 11/17/18 08:25 Dose: 2.5 mg Magnesium Hydroxide (Milk Of Magnesia) 30 ml PO DAILY PRN PRN Reason: Constipation Metformin HCl (Glucophage) 500 mg PO BIDMEALS [facility] Last Admin: 11/17/18 08:25 Dose: 500 mg Methotrexate (Methotrexate) 17.5 mg PO WE [facility] Metoprolol Tartrate (Lopressor) 5 mg IV Q6HR PRN PRN Reason: SBP>170 Non-Formulary Medication (Adalimumab [Humira(Cf) Pen]) 40 mcg SUBCUT Q14D [facility] Non-Formulary Medication (Clozapine) 400 mg PO QPM [facility] Non-Formulary Medication (Dulaglutide [Trulicity]) 1.5 mg SUBCUT WE [facility] Non-Formulary Medication (Fluocinonide [Lidex 0.05% Crm]) 1 dose TOP DAILY PRN PRN Reason: psoriasis Non-Formulary Medication (Lurasidone Hcl [Latuda]) 40 mg PO 1600 [facility] Non-Formulary Medication (Lurasidone Hcl [Latuda]) 120 mg PO 1600 [facility] Non-Formulary Medication (Paliperidone [Invega]) 3 mg PO BEDTIME [facility] Non-Formulary Medication (Paliperidone [Invega]) 9 mg PO BEDTIME [facility] Non-Formulary Medication (Tresiba Flextouch*) 20 units SUBCUT BEDTIME [facility] Nystatin (Nystop) 0 gm TOP BID PRN PRN Reason: Rash Omeprazole (Omeprazole) 20 mg PO DAILY [facility] Last Admin: 11/17/18 08:25 Dose: 20 mg Polyethylene Glycol (Miralax) 17 gm PO DAILY [facility] Last Admin: 11/17/18 08:24 Dose: 17 gm Senna/Docusate Sodium (Senna Plus) 1 tab PO BID [facility] Last Admin: 11/17/18 08:25 Dose: 1 tab Vitamin B Complex/Vit C/Folic Acid (Nephrocaps) 1 tab PO DAILY [facility] Assessment/Plan Comment:: History of present illness 58-year-old female who is a resident of a long-term care [facility] in [place], [place] was seen and evaluated at outlying [facility] due to chest pain and shortness necessitating full evaluation/workup in the local ED. According to long-term staff patient has required oxygen ~ 5 days prior due to hypoxia and shortness of breath and staff has noted a decline in health ever since her hospitalization in August was significant for pneumonia/sepsis and pulmonary embolism. She was admitted into observation for rule out ID and further workup. She does have significant psychiatric illnesses making full review of systems and pertinent history elusive. With her schizophrenia/mental illness minimal communicative at [facility], limited review of systems from the patient. [facility], EKG NSR, low voltage likely due to pulm body habitus/disease VS: RRR 24 SPO2 97% ED findings D-dimer less than 100 WBC normal--CRP 6.0 Troponin slight elevation initial normal, CXR; small left pleural effusion with borderline central vascular congestion-- atelectasis Recent hospitalization summary Patient was in [facility] August 2018 due to SOB/hypoxia and fever after significant vomiting the day prio. She was hypoxic on admission requiring oxygen supplementation CTA identified bilateral extensive pulmonary emboli requiring anticoagulation. She was treated with IV antibiotics for HCAP/ sepsis and UTI/sepsis. She was evaluated by speech therapy due to dysphagia-- diet with nectar lick liquids and upright positioning eating. Primary hospital problems --ID, NSTEMI, mild, hemodynamic type II likely, troponin trended normal --Hypoxia, O2 TKS 90-92%, ICS --COPD/Hypoxia, likely poor lung function, no PFT on file, doubtful if true COPD suspect OHS, ABG to see if hypercapnic/bicarbonate elevation --Obesity Hypoventilation Syndrome, high suspect due to obesity, EMMANUEL, neck/body habitus --Obesity/central with pickwickian body habitus co-morbid --Suspect EMMANUEL, obtain sleep study from 2011 --Chronic aspiration, thickened liquids, upright positioning eating --Hypocoagulable state, INR trending down 3.8, hold Coumadin tonight --CKD, stage 3. Chronic conditions Recent PE, anticoagulation HTN T2 DM, recent decrease of Tresiba to 20u daily and d/c Novolog Morbid obesity BMI 39 EMMANUEL, needs CPAP, may need sleep study to rule out OHS GERD, PPI OA, hip, knee HLD, statin Hypothyroidism, TSH September 2018 1.66 Schizophrenia "CODE STATUS is DO NOT RESUSCITATE" dated 08/12/2018 Overall plan today, ABG, doubtful infectious process, highly suspect obesity hypoventilation syndrome (OHS) with concommitment EMMANUEL with less emphasis on COPD. Will check ABG to determine hypercapnic bicarbonate elevation, and going chronic aspiration requiring thickened liquids, upright positioning eating, tonight. Doubtful formal PFT be done due to mental condition however will consider sleep study polysomnography testing. Possible overnight oximetry here at [place]. Consult with RT.
[2018-11-17] MEDS: Acetaminophen 650 MG Tab.ER PO SCH ×4 (12:06→23:28)
[2018-11-17] MEDS ORDERED: LURASIDONE HCL 40 MG PO SCH (16:00)
[2018-11-17] MEDS ORDERED: Lurasidone Hcl [Latuda] 120 MG PO SCH (16:00)
[2018-11-17] MEDS ORDERED: Dulaglutide [Trulicity] 1.5 MG SUBCUT SCH (21:00)
[2018-11-17] MEDS ORDERED: TRESIBA 20 UNIT SUBCUT SCH (21:00)
[2018-11-17] MEDS ORDERED: atorvaSTATin 10 MG Tab PO SCH (21:00)
[2018-11-17] MEDS ORDERED: PALIPERIDONE 3 MG PO SCH (21:00)
[2018-11-17] MEDS ORDERED: PALIPERIDONE 9 MG PO SCH (21:00)
[2018-11-17] MEDS: METHOTREXATE 2.5 MG PO SCH ×2 (22:08→23:17)
[2018-11-17] MEDS: CLOZAPINE 400 MG PO SCH ×2 (22:09→23:20)
[2018-11-18] MEDS: ClonazePAM 0.5 MG Tab PO SCH (08:23)
[2018-11-18] MEDS: Levothyroxine 100 MCG Tab PO SCH (08:24)
[2018-11-18] MEDS: metFORMIN 500 MG Tab PO SCH (08:24)
[2018-11-18] MEDS: amLODIPine 2.5 MG Tab PO SCH (08:25)
[2018-11-18] MEDS: Lisinopril 10 MG Tab PO SCH (08:25)
[2018-11-18] MEDS: Calcium Citrate/Vitamin D3 315 MG-250 Unit Tab PO SCH (08:25)
[2018-11-18] MEDS: Folic Acid 1 MG Tab PO SCH (08:25)
[2018-11-18] MEDS: Polyethylene Glycol 3350 Powder 17 GM Packet PO SCH (08:26)
[2018-11-18] MEDS: Omeprazole 20 MG Cap.CR PO SCH (08:28)
[2018-11-18] MEDS: Acetaminophen 650 MG Tab.ER PO SCH ×2 (08:29→14:40)
[2018-11-18] MEDS: Diclofenac Sodium 1% Gel 100 GM Tube TOP SCH (08:43)
[2018-11-18] MEDS: FENOFIBRATE NANOCRYSTALLIZED 145 MG PO SCH (08:43)
[2018-11-18] MEDS: Biotin/Folic Acid/Vitamin C/Vitamin B Complex Tab PO SCH (08:45)
[2018-11-18] MEDS: Albuterol/Ipratropium 3.0-0.5 MG/3 ML Neb Soln NEB SCH (09:05)
--- NOTE | 2018-11-18 10:08 | PCM.DCSUM1 ---
Discharge Summary - Hospital Course Diagnosis: Stroke: No - Discharge Data Discharge Date: 11/18/18 Discharge Disposition: DC/[facility] Condition: Fair - Patient Instructions Diet, Other: [place] thickened liquids upright when eating, Activity: Cough & Deep Breathe Driving: Do Not Drive Showering/Bathing: May Shower Notify Provider of: Fever - Discharge Plan *PRESCRIPTION DRUG MONITORING PROGRAM REVIEWED*: Not Applicable *COPY OF PRESCRIPTION DRUG MONITORING REPORT IN PATIENT DIANNE: Not Applicable Home Medications: Home Meds Acetaminophen 650 mg PO Q4H PRN 03/21/14 [History] Albuterol Sulfate [Albuterol Sulfate HFA] 2 puff IH Q4H PRN 03/21/14 [History] Fenofibrate Nanocrystallized [Fenofibrate] 145 mg PO DAILY 03/21/14 [History] Folic Acid 1 mg PO DAILY 03/21/14 [History] Ipratropium/Albuterol Sulfate [Duoneb 0.5 mg-3 mg/3 ml Soln] 1 unit NEB BID [History] Levothyroxine Sodium [Synthroid] 200 mcg PO ACBRK 03/21/14 [History] Lisinopril 2.5 mg PO DAILY 03/21/14 [History] Methotrexate Sodium [Methotrexate] 17.5 mg PO WE 03/21/14 [History] Omeprazole [Prilosec] 20 mg PO DAILY 03/21/14 [History] Sennosides/Docusate Sodium [Senna Plus Tablet] 2 each PO BID 03/21/14 [History] cloZAPine 400 mg PO QPM 03/21/14 [History] clonazePAM [Clonazepam] 3 mg PO BID 03/21/14 [History] Acetaminophen [Acetaminophen ER] 1,300 mg PO DAILY 11/16/18 [History] Acetaminophen [Acetaminophen ER] 650 mg PO 1300,2200 11/16/18 [History] Adalimumab [Humira(Cf) Pen] 40 mcg SUBCUT Q14D 11/16/18 [History] Bisacodyl 10 mg RECTAL DAILY PRN 11/16/18 [History] Calcium Carb & Citrate/Vit D3 [Calcium + D3 ER Tablet] 1 tab PO DAILY 11/16/18 [ History] Diclofenac Sodium [Voltaren 1% Gel] 2 gm TOP DAILY 11/16/18 [History] Dulaglutide [Trulicity] 1.5 mg SUBCUT WE 11/16/18 [History] Fluocinonide [Lidex 0.05% Crm] 1 dose TOP DAILY PRN 11/16/18 [History] Lurasidone HCl [Latuda] 40 mg PO 1600 11/16/18 [History] Lurasidone HCl [Latuda] 120 mg PO 1600 11/16/18 [History] Magnesium Hydroxide [Milk of Magnesia] 30 ml PO DAILY PRN 11/16/18 [History] Metoprolol Tartrate 5 mg IV Q6HR PRN 11/16/18 [History] Multivitamin [Multi-Vitamin Daily] 1 tab PO DAILY 11/16/18 [History] Nystatin 1 dose TOP BID PRN 11/16/18 [History] Paliperidone [Invega] 3 mg PO BEDTIME 11/16/18 [History] Paliperidone [Invega] 9 mg PO BEDTIME 11/16/18 [History] Polyethylene Glycol 3350 [MiraLAX] 17 gm PO DAILY 11/16/18 [History] Tresiba Flextouch* 20 units SUBCUT BEDTIME 11/16/18 [History] Warfarin [Coumadin] 2.5 mg PO SUMOWETHFR 11/16/18 [History] Warfarin [Coumadin] 3.75 mg PO TUSA 11/16/18 [History] amLODIPine [Norvasc] 2.5 mg PO DAILY 11/16/18 [History] atorvaSTATin [Lipitor] 10 mg PO BEDTIME 11/16/18 [History] guaiFENesin/Dextromethorphan [Tussin DM Clear] 10 ml PO Q4H PRN 11/16/18 [ History] metFORMIN [Glucophage] 500 mg PO BIDMEALS 11/16/18 [History] Oxygen Therapy Mode: Nasal Cannula (3 liters per minute) Oxygen Flow Rate (L/min): 3 Forms: ED Department Discharge - Patient Data Vitals - Most Recent: Last Vital Signs Temp 97.7 F 11/18/18 06:50 Pulse 87 11/18/18 06:50 Resp 20 11/18/18 06:50 BP 103/57 L 11/18/18 08:25 Pulse Ox 93 L 11/18/18 06:50 Weight - Most Recent: 227 lb 9 oz I&O - Last 24 hours: Intake & Output 11/17/18 11/18/18 11/18/18 22:59 06:59 14:59 Intake Total 200 100 Balance 200 100 Lab Results - Last 24 hrs: Laboratory Results - last 24 hr 11/17/18 11/18/18 Range/Units 07:10 06:28 POC Glucose 119 H (74-106) mg/dl Procalcitonin 0.26 H (<0.10) ng/mL Med Orders - Current: Current Medications Acetaminophen (Tylenol Arthritis Pain) 650 mg PO 1300,2200 [facility] Last Admin: 11/17/18 23:28 Dose: 650 mg Acetaminophen (Tylenol Arthritis Pain) 1,300 mg PO DAILY [facility] Last Admin: 11/18/18 08:29 Dose: 1,300 mg Albuterol/Ipratropium (Duoneb 3.0-0.5 Mg/3 Ml) 3 ml NEB BID [facility] Last Admin: 11/18/18 09:05 Dose: 3 ml Amlodipine Besylate (Norvasc) 2.5 mg PO DAILY [facility] Last Admin: 11/18/18 08:25 Dose: 2.5 mg Atorvastatin Calcium (Lipitor) 10 mg PO BEDTIME [facility] Last Admin: 11/17/18 21:40 Dose: Not Given Bisacodyl (Dulcolax) 10 mg RECTAL DAILY PRN PRN Reason: Constipation Calcium Citrate (Calcium Citrate + D) 1 tab PO DAILY [facility] Last Admin: 11/18/18 08:25 Dose: 1 tab Clonazepam (Klonopin) 3 mg PO BID [facility] Last Admin: 11/18/18 08:23 Dose: 3 mg Diclofenac Sodium (Voltaren 1% Gel) 2 gm TOP DAILY [facility] Last Admin: 11/18/18 08:43 Dose: 1 applic Fenofibrate (Tricor) 145 mg PO DAILY [facility] Last Admin: 11/18/18 08:43 Dose: 145 mg Folic Acid (Folic Acid) 1 mg PO DAILY [facility] Last Admin: 11/18/18 08:25 Dose: 1 mg Guaifenesin/Phenylephrine HCl (Robitussin Dm) 10 ml PO Q4H PRN PRN Reason: Cough Levothyroxine Sodium (Synthroid) 200 mcg PO ACBRK [facility] Last Admin: 11/18/18 08:24 Dose: 200 mcg Lisinopril (Prinivil) 2.5 mg PO DAILY [facility] Last Admin: 11/18/18 08:25 Dose: 2.5 mg Magnesium Hydroxide (Milk Of Magnesia) 30 ml PO DAILY PRN PRN Reason: Constipation Metformin HCl (Glucophage) 500 mg PO BIDMEALS [facility] Last Admin: 11/18/18 08:24 Dose: 500 mg Methotrexate (Methotrexate) 17.5 mg PO Q7D@2100 [facility] Last Admin: 11/17/18 23:17 Dose: 17.5 mg Metoprolol Tartrate (Lopressor) 5 mg IV Q6HR PRN PRN Reason: SBP>170 Nystatin (Nystop) 0 gm TOP BID PRN PRN Reason: Rash Omeprazole (Omeprazole) 20 mg PO DAILY [facility] Last Admin: 11/18/18 08:28 Dose: 20 mg Adalimumab [Humira (Pen] 40 Mcg) 40 each SUBCUT Q14D [facility] Last Admin: 11/17/18 11:33 Dose: Not Given Clozapine 400 Mg 400 each PO QPM [facility] Last Admin: 11/17/18 23:20 Dose: 400 each Dulaglutide [ (Trulicity] 1.5 Mg) 1.5 each SUBCUT Q7D [facility] Last Admin: 11/17/18 21:44 Dose: 1.5 each Fluocinonide [Lidex (0.05% Crm] 1 Dose) 1 each TOP DAILY PRN PRN Reason: psoriasis Tresiba Flextouch * (20 Units) 20 each SUBCUT BEDTIME [facility] Last Admin: 11/17/18 21:46 Dose: 20 each Lurasidone Hcl [ (Latuda] 40 Mg) 40 each PO DAILY@1600 [facility] Lurasidone Hcl [ (Latuda] 120 Mg) 120 each PO DAILY@1600 [facility] Paliperidone Er 9mg 1 each PO BEDTIME [facility] Paliperidone Er 3 Mg 1 each PO BEDTIME [facility] Polyethylene Glycol (Miralax) 17 gm PO DAILY [facility] Last Admin: 11/18/18 08:26 Dose: 17 gm Senna/Docusate Sodium (Senna Plus) 1 tab PO BID [facility] Last Admin: 11/18/18 08:24 Dose: 1 tab Vitamin B Complex/Vit C/Folic Acid (Nephrocaps) 1 tab PO DAILY [facility] Last Admin: 11/18/18 08:45 Dose: Not Given Discontinued Medications Lurasidone Hcl [ (Latuda] 40 Mg) 40 each PO 1600 [facility] Last Admin: 11/17/18 19:51 Dose: Not Given Lurasidone Hcl [ (Latuda] 120 Mg) 120 each PO 1600 [facility] Last Admin: 11/17/18 19:51 Dose: Not Given Paliperidone [Invega (] 3 Mg) 3 each PO BEDTIME [facility]
[2018-11-18] MEDS ORDERED: Lurasidone Hcl [Latuda] 120 MG PO SCH (16:00)
[2018-11-18] MEDS ORDERED: LURASIDONE HCL 40 MG PO SCH (16:00)
[2018-11-18] MEDS ORDERED: PALIPERIDONE 9 MG PO SCH (21:00)
[2018-11-18] MEDS ORDERED: PALIPERIDONE 3 MG PO SCH (21:00)
== END 2018-11-18 14:40 ==
LOC: KA.ED 17:25 → KA.MS 20:18
PROVIDERS: ADMIT Family Medicine; ATTEND Physician Assistant
DX: J90 Pleural effusion, not elsewhere classified (principal); J98.11 Atelectasis; I10 Essential (primary) hypertension; R79.89 Other specified abnormal findings of blood chemistry; E78.00 Pure hypercholesterolemia, unspecified; J44.9 Chronic obstructive pulmonary disease, unspecified; K21.9 Gastro-esophageal reflux disease without esophagitis; E11.9 Type 2 diabetes mellitus without complications; Z79.01 Long term (current) use of anticoagulants; Z79.4 Long term (current) use of insulin; Z79.51 Long term (current) use of inhaled steroids; Z79.891 Long term (current) use of opiate analgesic; Z79.899 Other long term (current) drug therapy; Z88.0 Allergy status to penicillin; Z88.5 Allergy status to narcotic agent; Z88.1 Allergy status to other antibiotic agents; Z87.891 Personal history of nicotine dependence; Z99.81 Dependence on supplemental oxygen
CPT/HCPCS: 36415; 36416; 36600; 71045; 80053; 82550; 82553; 82803; 82962; 83605; 83880; 84145; 84484; 85025; 85379; 85610; 86140; 94640; 99284; 99285-25; A9270-GY; G0378; J7620-GY; J8610